=== PATIENT | female | born 1980 | race Caucasian/White ===

== ENCOUNTER 2018-04-21 14:34 | Emergency (ER) | payer OTHER ==
[2018-04-21 15:55] LABS: ADD MAN DIFF? NO
[2018-04-21 15:59] LABS: BASOPHILS % 0.2 % (0.0-2.0); EOSINOPHILS # 0.1 10^3/ul (0.0-0.5); EOSINOPHILS % 0.8 % (0.0-7.0); HEMATOCRIT 31.2 % (37.0-47.0); HEMOGLOBIN 10.4 g/dl (12.0-16.0); LYMPHOCYTES # 1.2 10^3/ul (0.8-2.9); LYMPHOCYTES % 14.1 % (15.0-51.0); MEAN CORPUSCULAR HEMOGLOBIN 30.1 pg (29.0-33.0); MEAN CORPUSCULAR HGB CONC 33.3 g/dl (32.0-37.0); MEAN CORPUSCULAR VOLUME 90.4 fl (82.0-101.0); MONOCYTE # 0.5 10^3/ul (0.3-0.9); MONOCYTES % 5.8 % (0.0-11.0); NEUTROPHIL # 6.8 10^3/ul (1.6-7.5); NEUTROPHILS % 78.8 % (39.0-77.0); PLATELET COUNT 225 10^3/UL (140-415); RED BLOOD COUNT 3.45 10^6/ul (4.20-5.40); RED CELL DISTRIBUTION WIDTH 12.9 % (11.5-14.5)
[2018-04-21 15:59] LABS: WHITE BLOOD COUNT 8.7 10^3/ul (4.8-10.8)
[2018-04-21 16:04] LABS: ADD UMIC NO; UR ASCORBIC ACID NEGATIVE (NEGATIVE); UR BILIRUBIN (Dip) NEGATIVE (NEGATIVE); UR BLOOD (Dip) NEGATIVE (NEGATIVE); UR CLARITY CLEAR (CLEAR); UR COLOR YELLOW (YELLOW); UR GLUCOSE (Dip) NEGATIVE (NEGATIVE); UR KETONES (Dip) TRACE mg/dL (NEGATIVE); UR LEUKOCYTE ESTERASE (Dip) NEGATIVE Leu/ul (NEGATIVE); UR NITRITE (Dip) NEGATIVE (NEGATIVE); UR SPECIFIC GRAVITY (Dip) 1.008 (1.003-1.030); UR TOTAL PROTEIN (Dip) NEGATIVE (NEGATIVE); UR UROBILINOGEN (Dip) NEGATIVE (NEGATIVE)
== END 2018-04-21 17:33 | disposition home or self-care (01) ==
LOC: FTE 14:34
DX: O26.892 Other specified pregnancy related conditions, second trimester (principal); R10.9 Unspecified abdominal pain; R10.2 Pelvic and perineal pain; Z3A.14 14 weeks gestation of pregnancy
CPT/HCPCS: 36415; 76805; 81003; 84702; 85025; 86900; 86901; 99284-25

== ENCOUNTER 2018-06-21 22:25 | Outpatient (CLI) | payer OTHER ==
[2018-06-21 22:58] LABS: ADD UMIC YES; UR ASCORBIC ACID 20 mg/dL (NEGATIVE); UR BACTERIA FEW /HPF (NONE SEEN); UR BILIRUBIN (Dip) NEGATIVE (NEGATIVE); UR BLOOD (Dip) NEGATIVE (NEGATIVE); UR CLARITY SLIGHTLY CLOUDY (CLEAR); UR COLOR YELLOW (YELLOW); UR GLUCOSE (Dip) NEGATIVE (NEGATIVE); UR KETONES (Dip) NEGATIVE (NEGATIVE); UR LEUKOCYTE ESTERASE (Dip) 1+ Leu/ul (NEGATIVE); UR MUCUS FEW /HPF (NONE SEEN); UR NITRITE (Dip) NEGATIVE (NEGATIVE); UR RBC 3 /HPF (0-5); UR SPECIFIC GRAVITY (Dip) 1.027 (1.003-1.030); UR SQUAMOUS EPITHELIAL CELL FEW /HPF (FEW); UR TOTAL PROTEIN (Dip) 1+ mg/dl (NEGATIVE); UR UROBILINOGEN (Dip) NEGATIVE (NEGATIVE); UR WBC 4 /HPF (0-5)
== END 2018-06-22 00:41 | disposition home or self-care (01) ==
LOC: OBT 22:25 → L-D 22:27
DX: O26.892 Other specified pregnancy related conditions, second trimester (principal); O09.522 Supervision of elderly multigravida, second trimester; Z3A.23 23 weeks gestation of pregnancy
CPT/HCPCS: 81001

== ENCOUNTER 2018-08-15 22:35 | Outpatient (CLI) | payer OTHER ==
[2018-08-16 00:13] LABS: ADD UMIC YES; UR ASCORBIC ACID NEGATIVE (NEGATIVE); UR BACTERIA FEW /HPF (NONE SEEN); UR BILIRUBIN (Dip) NEGATIVE (NEGATIVE); UR BLOOD (Dip) 1+ mg/dL (NEGATIVE); UR CLARITY CLEAR (CLEAR); UR COLOR STRAW (YELLOW); UR GLUCOSE (Dip) NEGATIVE (NEGATIVE); UR KETONES (Dip) NEGATIVE (NEGATIVE); UR LEUKOCYTE ESTERASE (Dip) 3+ Leu/ul (NEGATIVE); UR NITRITE (Dip) NEGATIVE (NEGATIVE); UR RBC 1 /HPF (0-5); UR SPECIFIC GRAVITY (Dip) 1.001 (1.003-1.030); UR SQUAMOUS EPITHELIAL CELL FEW /HPF (FEW); UR TOTAL PROTEIN (Dip) NEGATIVE (NEGATIVE); UR UROBILINOGEN (Dip) NEGATIVE (NEGATIVE); UR WBC 6 /HPF (0-5)
== END 2018-08-16 02:37 | disposition home or self-care (01) ==
LOC: OBT 22:35 → L-D 22:36
DX: O26.893 Other specified pregnancy related conditions, third trimester (principal); Z3A.31 31 weeks gestation of pregnancy; R10.2 Pelvic and perineal pain
CPT/HCPCS: 76815; 76817; 76818; 81001; 87086

== ENCOUNTER 2018-10-01 21:04 | Outpatient (CLI) | payer OTHER ==
[2018-10-01 22:45] LABS: RUPTURE FETAL MEMBRANES NEGATIVE (NEGATIVE)
== END 2018-10-01 23:05 | disposition home or self-care (01) ==
LOC: OBT 21:04 → L-D 21:05 → OBT 23:05
DX: O42.92 Full-term premature rupture of membranes, unspecified as to length of time between rupture and onset of labor (principal); O09.523 Supervision of elderly multigravida, third trimester; Z3A.37 37 weeks gestation of pregnancy
CPT/HCPCS: 76818; 84112; 93005

== ENCOUNTER 2018-10-08 17:59 | Inpatient (IN) | payer OTHER ==
[2018-10-08] MEDS ORDERED: IBUPROFEN 600 MG TAB PO (20:00)
[2018-10-08] MEDS ORDERED: LIDOCAINE 1% (MPF) 30 ML INJ INJ (20:00)
[2018-10-08] MEDS ORDERED: OXYTOCIN 30 UNITS/LR 500 ML IV ×2 (20:00)
[2018-10-08] MEDS ORDERED: METHYLERGONOVINE 0.2 MG INJ IM (20:00)
[2018-10-08] MEDS ORDERED: CARBOPROST 250 MCG INJ IM (20:00)
[2018-10-08] MEDS ORDERED: MISOPROSTOL 200 MCG TAB PR (20:00)
[2018-10-08] MEDS ORDERED: BUTORPHANOL 2 MG INJ IV (20:00)
[2018-10-08 20:45] LABS: ADD MAN DIFF? NO
[2018-10-08 20:48] LABS: BASOPHILS % 0.1 % (0.0-2.0); EOSINOPHILS # 0.1 10^3/ul (0.0-0.5); EOSINOPHILS % 1.1 % (0.0-7.0); HEMATOCRIT 35.2 % (37.0-47.0); HEMOGLOBIN 11.8 g/dl (12.0-16.0); LYMPHOCYTES # 1.2 10^3/ul (0.8-2.9); LYMPHOCYTES % 13.1 % (15.0-51.0); MEAN CORPUSCULAR HEMOGLOBIN 29.8 pg (29.0-33.0); MEAN CORPUSCULAR HGB CONC 33.5 g/dl (32.0-37.0); MEAN CORPUSCULAR VOLUME 88.9 fl (82.0-101.0); MEAN PLATELET VOLUME 11.1 fl (7.4-10.4); MONOCYTE # 0.6 10^3/ul (0.3-0.9); MONOCYTES % 6.7 % (0.0-11.0); NEUTROPHIL # 7.3 10^3/ul (1.6-7.5); NEUTROPHILS % 78.6 % (39.0-77.0); PLATELET COUNT 214 10^3/UL (140-415); RED BLOOD COUNT 3.96 10^6/ul (4.20-5.40); RED CELL DISTRIBUTION WIDTH 13.6 % (11.5-14.5)
[2018-10-08 20:48] LABS: WHITE BLOOD COUNT 9.3 10^3/ul (4.8-10.8)
[2018-10-08] MEDS: LACTATED RINGER'S 1,000 ML IV ×2 (20:51→22:11)
[2018-10-08 21:08] LABS: INR 0.93; PROTIME 12.6 Sec (11.9-14.9)
[2018-10-08 21:09] LABS: PARTIAL THROMBOPLASTIN TIME 28.3 Sec (23.0-35.0)
[2018-10-08 21:36] LABS: HEPATITIS B SURFACE ANTIGEN NEGATIVE (NEGATIVE)
[2018-10-08] MEDS ORDERED: FENTAnyl 2MCG/ML-ROPIV 0.2% 100 ML (22:00)
[2018-10-08] MEDS ORDERED: NALOXONE (0.4 MG/ML) INJ IV (22:00)
[2018-10-08] MEDS ORDERED: DIPHENHYDRAMINE 50 MG INJ IV (22:00)
[2018-10-08] MEDS: FENTAnyl 2MCG/ML-ROPIV 0.2% 100 ML BAG EPI (22:10)
[2018-10-08] MEDS: CLINDAMYCIN 900 MG/D5W (PMX) 50 ML IVPB (22:14)
[2018-10-08] MEDS: ONDANSETRON 4 MG INJ IV (23:03)
[2018-10-08 23:11] LABS: AMPHETAMINE/METHAMPHETAMINE NEGATIVE (NEGATIVE); BARBITURATES NEGATIVE (NEGATIVE); BENZODIAZEPINES NEGATIVE (NEGATIVE); CANNABINOIDS NEGATIVE (NEGATIVE); COCAINE NEGATIVE (NEGATIVE); OPIATES NEGATIVE (NEGATIVE)
[2018-10-08] MEDS: OXYTOCIN 30 UNITS/LR 500 ML IV (23:11)
[2018-10-09] MEDS ORDERED: MINERAL OIL LIGHT 10 ML VIAL TOP (05:00)
[2018-10-09] MEDS: LACTATED RINGER'S 1,000 ML IV (05:18)
[2018-10-09] MEDS: CLINDAMYCIN 900 MG/D5W (PMX) 50 ML IVPB (06:06)
[2018-10-09] MEDS: FENTAnyl 2MCG/ML-ROPIV 0.2% 100 ML BAG EPI (06:07)
[2018-10-09] MEDS: OXYTOCIN 30 UNITS/LR 500 ML IV ×2 (08:20→12:23)
[2018-10-09] MEDS: DEXTROSE 5%-LR 1,000 ML IV ×2 (11:27→19:27)
[2018-10-09] MEDS ORDERED: METHYLERGONOVINE 0.2 MG TAB PO (11:30)
[2018-10-09] MEDS ORDERED: OXYTOCIN 30 UNITS/LR 500 ML IV (11:30)
[2018-10-09] MEDS ORDERED: METHYLERGONOVINE 0.2 MG INJ IM (11:30)
[2018-10-09] MEDS ORDERED: CARBOPROST 250 MCG INJ IM (11:30)
[2018-10-09] MEDS ORDERED: MISOPROSTOL 200 MCG TAB PR (11:30)
[2018-10-09] MEDS: LANOLIN HPA 1 PKT TOP (12:13)
[2018-10-09] MEDS: IBUPROFEN 800 MG TAB PO ×2 (14:47→22:36)
[2018-10-09 15:05] LABS: RAPID PLASMA REAGIN NONREACTIVE (NR)
[2018-10-09] MEDS: SENNA/DOCUSATE NA (8.6MG/50MG) TAB PO (20:20)
[2018-10-10] MEDS: DEXTROSE 5%-LR 1,000 ML IV (03:27)
[2018-10-10] MEDS: IBUPROFEN 800 MG TAB PO ×3 (05:19→22:00)
[2018-10-10 08:17] LABS: ADD MAN DIFF? NO
[2018-10-10 08:22] LABS: WHITE BLOOD COUNT 8.9 10^3/ul (4.8-10.8)
[2018-10-10 08:22] LABS: BASOPHILS % 0.2 % (0.0-2.0); EOSINOPHILS # 0.2 10^3/ul (0.0-0.5); EOSINOPHILS % 1.8 % (0.0-7.0); HEMATOCRIT 32.9 % (37.0-47.0); HEMOGLOBIN 10.6 g/dl (12.0-16.0); LYMPHOCYTES # 1.1 10^3/ul (0.8-2.9); LYMPHOCYTES % 12.7 % (15.0-51.0); MEAN CORPUSCULAR HEMOGLOBIN 29.1 pg (29.0-33.0); MEAN CORPUSCULAR HGB CONC 32.2 g/dl (32.0-37.0); MEAN CORPUSCULAR VOLUME 90.4 fl (82.0-101.0); MEAN PLATELET VOLUME 11.3 fl (7.4-10.4); MONOCYTE # 0.5 10^3/ul (0.3-0.9); MONOCYTES % 5.7 % (0.0-11.0); NEUTROPHIL # 7.1 10^3/ul (1.6-7.5); NEUTROPHILS % 79.3 % (39.0-77.0); PLATELET COUNT 174 10^3/UL (140-415); RED BLOOD COUNT 3.64 10^6/ul (4.20-5.40); RED CELL DISTRIBUTION WIDTH 13.9 % (11.5-14.5)
[2018-10-10] MEDS: SENNA/DOCUSATE NA (8.6MG/50MG) TAB PO ×2 (09:39→21:15)
[2018-10-10] MEDS: MAGNESIUM HYDROXIDE 30ML CUP PO (09:39)
[2018-10-10] MEDS ORDERED: HYDROCODONE/APAP (5/325) TAB NGT (11:00)
[2018-10-10] MEDS ORDERED: DIPHTH/TET/ACEL PERTUSS (ADULT) 0.5 ML VIAL IM* (11:00)
[2018-10-10] MEDS: HYDROCODONE/APAP (5/325) TAB GTB ×2 (14:00→22:00)
[2018-10-11] MEDS: HYDROCODONE/APAP (5/325) TAB GTB ×2 (05:26→14:00)
[2018-10-11] MEDS: IBUPROFEN 800 MG TAB PO ×2 (05:26→14:10)
[2018-10-11] MEDS: SENNA/DOCUSATE NA (8.6MG/50MG) TAB PO (10:05)
[2018-10-11] MEDS: DIPHTH/TET/ACEL PERTUSS (ADULT) 0.5 ML VIAL IM* (11:28)
[2018-10-12] MEDS ORDERED: DIPHTH/TET/ACEL PERTUSS (ADULT) 0.5 ML VIAL IM* (09:00)
[2018-10-12] MEDS ORDERED: MEASLES,MUMPS,RUBELLA VACCINE INJ SC* (09:00)
== END 2018-10-11 16:14 | disposition home or self-care (01) | DRG 807 ==
LOC: OBT 17:59 → PP1 10-09 10:40 → L-D 18:00 → OBT 19:28 → L-D 19:28
PROVIDERS: Obstetrics & Gynecology
PROC: 10E0XZZ Delivery of Products of Conception, External Approach (ICD-10-PCS; principal; 2018-10-09)
DX: O99.824 Streptococcus B carrier state complicating childbirth (principal); Z37.0 Single live birth; Z3A.38 38 weeks gestation of pregnancy
CPT/HCPCS: 62322; 76818; 80307; 85025; 85610; 85730; 86592; 86850; 86870; 86900; 86901; 87340; 90715